=== PATIENT | male | born 1995 | race African-American/Black ===

== ENCOUNTER 2020-03-25 14:54 | Emergency (ER) | payer SELFPAY ==
[2020-03-25 14:58] VITALS: BP 148/93; PULSE 80; RESP 16; TEMP 36.7; O2SAT 100
[2020-03-25] MEDS: cefTRIAXone 250 MG VIAL IM (15:28)
[2020-03-25] MEDS: Azithromycin 250 MG TAB 1000 MG PO (15:28)
[2020-03-25 15:51] VITALS: BP 131/86; PULSE 60; TEMP 36.6; O2SAT 100
--- NOTE | 2020-03-27 08:35 | ED.GENADUL_ITS ---
Discharge Plan Disposition Patient Disposition: HOME Condition: Stable Discharge Details Chief Complaint: GenMedical Clinical Impression: Exposure to STD Primary Care Provider: Rodrigo Kelley ED Provider: Imelda Grove Home Meds and New Rx's Prescriptions: No Action No Known Home Meds RF: 0 Discharge Instructions Instructions: Chlamydia (ED) Additional Instructions: Test results will return in approximately 3 to 5 days. We will call for any abnormal results. Please feel free to call [phone] or follow-up with PCP for your test results. You received a dose of azithromycin as well as ceftriaxone due to your exposure to chlamydia. Please use condoms to protect yourself. Return for any worsening, concerns or alarming symptoms sooner if needed. Recheck with PCP for development of symptoms or any concerns if needed Discharge Data Discharge Date/Time-TO BE ENTERED AT DEPARTURE: 03/25/20 16:04 Medical Decision Making Is a very pleasant 25-year-old gentleman presenting after chlamydia exposure. Patient had unprotected intercourse with a partner a few days ago and was advised to day that she was positive for chlamydia. Patient reports he is asymptomatic. On physical exam patient has a benign exam with no obvious penile discharge. Patient does have a single isolated lymph node noted in the left inguinal. Patient has benign abdominal exam. After discussion with the patient will plan to provide dose of azithromycin as well as ceftriaxone IM. Patient agrees this plan of care. Patient did provide urine sample for GC and chlamydia testing. Patient has no other identifiable rash noted in the perineum. We did discuss HIV and hepatitis. Patient does not feel he needs testing at this time. Recommended follow-up with PCP for any development of symptoms or return to the emergency room for any concerns. Patient advised to abstain from intercourse until test results have returned for approximately the next 5 days. Patient reports understanding, agrees with plan of care. The patient was stable and requested discharge. Prior to discharge, my usual and customary return precautions were reviewed with the patient - this included follow-up instructions and reasons to return to the Emergency Department if conditions worsens, does not improve as expected, or other new concerns arise. HPI General Date/Time Provider Initiated Documentation: 03/25/20 15:00 . HPI Narrative: This is a 25-year-old gentleman presenting to the emergency room for concerns of STD exposure. Patient reports he had under protected intercourse with a partner last few days. Patient reports partner told him today that she was positive for chlamydia. Patient denies any penile discharge, no penile itching, urgency, frequency of urination. Patient denies any abdominal or back pain. No fevers, chills, nausea, vomiting. Denies testicular pain or swelling. Patient denies any rash. Patient concerned specifically with exposure but reports being asymptomatic. No history of STD in the past. Regarding Covid: Screens negative. No cough, difficulty breathing shortness of breath, wheezing. No headache. No ill feeling. No taste or smell change. Patient denies any other concerns or complaints at this time. Related Data Home Medications Medication Instructions Recorded Confirmed Unknown [No Known Home Meds] 03/25/20 03/25/20 Allergies Allergy/AdvReac Type Severity Reaction Status Date / Time acetaminophen [From Tylenol] AdvReac NO TYLENOL Unverified 03/25/20 15:02 DUE TO G6pD DEFICIENCY General Stated Complaint: GenMedical GILES: 4 Review of Systems All systems reviewed & are unremarkable except as noted in HPI and below PFSH Social History Smoking/Tobacco Use Status: Never Alcohol Intake: current Alcohol Intake frequency: a few times a month Drug use: Never Substance use type: does not use Do you feel safe at home: Yes Do you feel safe in your relationship?: Yes Exam Narrative Exam Narrative: CONST: Healthy appearing patient, in no acute distress. Well hydrated. Alert and oriented. HENMT: Head nomocephalic, normal to inspection. Atraumatic. Hearing grossly normal. EYES: General normal appearance. Alignment normal. Eyelids normal. Conjunctiva normal. NECK: Normal visual inspection. FROM. Trachea midline. No Midline tenderness. CHEST: Normal insepection of the chest. RESP: Normal respiratory effort. Speaking full sentences. No cough. No audible wheezing. No retractions. CARDIO: No JVD. Abdomen: Abdomen is soft, nontender. : Uncircumcised, no rash. No obvious penile discharge. No testicular pain, scrotal pain or epididymal tenderness noted on exam. No asymmetric swelling present. Isolated, singular lymphadenopathy present in the inguinal lymph node on the left. MUSCULOSKELETAL: Normal Gait. FROM of all extremities. SKIN: Normal. Dry. No rashes. NEURO: Alert and awake. Speech clear. PSYCH: Normal affect. Cooperative. Course Vital Signs Vital signs: Vital Signs Temperature 36.7 C 03/25/20 14:58 Pulse 80 03/25/20 14:58 Respiratory Rate 16 03/25/20 14:58 Blood Pressure 148/93 H 03/25/20 14:58 Pulse Oximetry 100 03/25/20 14:58 Temperature 36.6 C 03/25/20 15:51 Temperature Source Skin 03/25/20 15:51 Pulse 60 03/25/20 15:51 Respiratory Rate 16 03/25/20 14:58 Respiratory Effort Non-Labored 03/25/20 15:02 Blood Pressure 131/86 03/25/20 15:51 Blood Pressure Position Sitting 03/25/20 14:58 Pulse Oximetry 100 03/25/20 15:51 Oxygen Delivery Method Room Air 03/25/20 15:51 Oxygen Flow Rate 0 03/25/20 15:51 Pain Level 0 03/25/20 14:58
[2020-03-28 15:29] LABS: GC Result Negative (Negative)
[2020-03-28 16:48] LABS: Chlamydia Result Positive (Negative)
--- NOTE | 2020-03-28 16:50 | NUR.NOTE ---
Nursing Note: Access pt chart for discharge prescriptions. Myriam Burnham.
== END 2020-03-25 16:04 | disposition home or self-care (01) ==
PROVIDERS: Emergency Provider Physician Assistant; PCP Family Medicine
DX: Z11.8 Encounter for screening for other infectious and parasitic diseases (principal)
CPT/HCPCS: 87491; 87591; 96372; 99284; 99283; J0696

== ENCOUNTER 2022-10-30 11:24 | Outpatient (REF) | payer BC, SELFPAY ==
[2022-10-31 13:04] LABS: Chlamydia Result Negative (Negative); GC Result Negative (Negative)
== END 2022-10-30 11:25 | disposition home or self-care (01) ==
LOC: LBN 11:24
PROVIDERS: Visit Provider Physician Assistant
DX: Z11.3 Encounter for screening for infections with a predominantly sexual mode of transmission (principal)
CPT/HCPCS: 87491; 87591

== ENCOUNTER 2022-10-30 16:49 | Outpatient (CLI) | payer BC, SELFPAY ==
[2022-10-31 10:53] LABS: HIV-1/2 Ag & Ab Screen Negative (Negative)
[2022-10-31 11:06] LABS: Hepatitis A Antibody IgM Negative (Negative); Hepatitis B Core Antibody Negative (Negative); Hepatitis B surface Ag Negative (Negative); Hepatitis C Ab w Rflx HCV PCR Negative (Negative)
== END 2022-10-30 16:50 | disposition home or self-care (01) ==
LOC: LBO 16:50
PROVIDERS: Visit Provider Physician Assistant
DX: N50.89 Other specified disorders of the male genital organs (principal); Z11.59 Encounter for screening for other viral diseases; Z11.4 Encounter for screening for human immunodeficiency virus [HIV]
CPT/HCPCS: 36415; 86704; 86709; 86803; 87340; 87389

== ENCOUNTER 2022-12-10 14:03 | Outpatient (REF) | payer BC, SELFPAY ==
[2022-12-12 13:13] LABS: Chlamydia Result Negative (Negative); GC Result Negative (Negative)
[2022-12-12 13:27] LABS: HSV Type 1 Ab, IgG Negative (Negative); HSV Type 2 Ab, IgG Positive (Negative)
== END 2022-12-10 14:04 | disposition home or self-care (01) ==
LOC: LBN 14:03
PROVIDERS: Visit Provider Nurse Practitioner Family
DX: Z11.3 Encounter for screening for infections with a predominantly sexual mode of transmission (principal); Z20.2 Contact with and (suspected) exposure to infections with a predominantly sexual mode of transmission; Z11.59 Encounter for screening for other viral diseases
CPT/HCPCS: 87491; 87529; 87591; 86695; 86696

== ENCOUNTER 2022-12-24 12:54 | Outpatient (CLI) | payer BC, SELFPAY ==
[2022-12-26 10:34] LABS: HSV Type 1 Ab, IgG Negative (Negative); HSV Type 2 Ab, IgG Positive (Negative)
== END 2022-12-24 12:55 | disposition home or self-care (01) ==
LOC: LBO 12:57
PROVIDERS: Visit Provider Nurse Practitioner Family
DX: B00.89 Other herpesviral infection (principal)
CPT/HCPCS: 36415; 86695; 86696

== ENCOUNTER 2023-09-04 17:22 | Emergency (ER) | payer SELFPAY ==
[2023-09-04 17:26] VITALS: BP 153/93; PULSE 78; RESP 14; TEMP 36.9; O2SAT 100
--- NOTE | 2023-09-04 18:35 | W.ED.GENAD ---
Discharge Plan Disposition Patient Disposition: Home Discharge Details Clinical Impression: Rectal bleeding Primary Care Provider: None,None ED Provider: Solis Hargrove Home Meds and New Rx's Prescriptions: No Action No Known Home Meds Discharge Instructions Instructions: Rectal Bleeding (ED) Additional Instructions: Please watch for new or worsening symptoms and return immediately to the ER. You may want to take stool softeners over the next 48 hours to avoid straining with any bowel movements. I recommend that you contact our general surgery team to discuss your symptoms and potential colonoscopy if symptoms were to persist. Referrals: Serenity Benavides MD [ [facility] STAFF PHYSICIAN] - Discharge Data Discharge Date/Time-TO BE ENTERED AT DEPARTURE: 09/04/23 19:13 Medical Decision Making 28-year-old gentleman who denies any significant past medical history presents having noted bright red blood in the toilet water after having had a bowel movement roughly 2 hours ago. Denies any true constipation bowel movement was somewhat firm. He then noticed some bright red blood on the tissue paper after wiping. Denies any pain whatsoever. Denies history of any GI bleeding. Denies easy bleeding in general, bleeding from his gums, etc. Denies significant change in his diet. Denies abdominal pain. Clinically he appears well, nontoxic. He is hemodynamically stable. I am not able to appreciate any obvious external hemorrhoids. While I do not feel any obvious internal hemorrhoid, certainly cannot rule them out. Most likely diagnosis is that of a anal fissure which will self resolve. He is otherwise healthy, no indication to obtain routine laboratory values to assess H&H. Plan to have the patient monitor symptoms carefully. Discussed the importance of adequate hydration as well as [id number] stool softeners for the next few days to avoid straining with any of his bowel movements. I will provide a referral to our general surgical team so that if he has ongoing symptoms he can have reassessment and discuss potential colonoscopy if indicated. Standard discharge and return precautions were provided. Patient understands, is agreeable to this plan, and has no additional questions or concerns upon discharge. This documentation was generated using [employer] system, please disregard any oddities of phrase or misspellings. Medical Records Medical records reviewed: Yes I reviewed the patient's medical records. HPI General Mode of arrival: ambulatory. Date/Time Provider Initiated Documentation: 09/04/23 18:05. Limitations to Documentation: no limitations. Information obtained by: patient. History of Present Illness 28 year old M presents to the emergency department with the chief complaint of rectal bleed, described as mild, with intensity rated at 2. Quality is described as other (no pain), and is localized to the buttocks. Patient reports no radiation. Patient started experiencing this hour(s) (2) and it has been other (Only happened once). No relieving factors improve symptom(s), Other factors that worsen symptoms (Bowel movement) . Patient notes no other symptoms.. Patient did receive the following treatments prior to arrival, none Related Data Home Medications Medication Instructions Recorded Confirmed Unknown [No Known Home Meds] 03/25/20 09/04/23 Allergies Allergy/AdvReac Type Severity Reaction Status Date / Time acetaminophen [From Tylenol] AdvReac NO TYLENOL Unverified 09/04/23 17:48 DUE TO G6pD DEFICIENCY General Stated Complaint: GI Bleed GILES: 4 Review of Systems Constitutional Constitutional: Denies fatigue, Denies fever(s) and Denies weakness Cardiovascular Cardiovascular: Denies chest pain and Denies dyspnea Respiratory Respiratory: Denies dyspnea Gastrointestinal Gastrointestinal: Denies abdominal pain, Denies melena, Reports hematochezia, Denies change in bowel habits, Denies constipation, Denies diarrhea, Denies nausea and Denies vomiting Genitourinary Genitourinary: Denies hematuria Musculoskeletal Musculoskeletal: Denies back pain Integumentary/Breasts Skin/Breast: Denies rash Neurologic Neurologic: Denies weakness Endocrine Endocrine: Denies fatigue Hematologic/Lymphatic Hematologic/Lymphatic: Denies easy bleeding and Denies easy bruising PFSH All Active Problems Rectal bleeding (Acute) HSV-2 seropositive (Acute) Spermatocele (Acute) Medical History 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) Adopted (12/26/12) Social History Smoking/Tobacco Use Status: Current every day Tobacco Type: smokeless tobacco Smoking risk assessment performed?: Yes Alcohol Intake: current Alcohol Intake frequency: a few times a month Drug use: Never Substance use type: does not use Do you feel safe at home: Yes Do you feel safe in your relationship?: Yes Exam Const General: cooperative, healthy appearing, comfortable and no acute distress [facility] Head: normal to inspection Mouth: moist mucous membranes Eyes General: appearance normal, both eyes and all related structures Neck Neck: normal visual inspection, full ROM, no meningeal signs and supple Resp Effort & Inspection: normal respiratory effort and able to speak in complete sentences Auscultation: clear to auscultation bilaterally Cardio Rate: regular rate Rhythm: regular rhythm GI Inspection: normal to inspection Palpation: soft, not firm, no guarding and nontender Auscultation: normal bowel sounds Rectal Exam: visual inspection normal, normal sphincter tone, No abnormal stool, heme positive stool 1+; Negative for gross blood, No hemorrhoids, No tenderness and other (Brown stool noted) Other: Exam completed with female RN in room Back/Spine/Pelvis Back: No back tenderness Skin General skin exam: no rashes or lesions noted Neuro General: patient alert and patient awake Cognition: normal cognition Speech: speech normal Gait: normal gait Extrem General: normal to inspection Course Vital Signs Vital signs: Vital Signs Temperature 36.9 C 09/04/23 17:26 Pulse 78 09/04/23 17:26 Respiratory Rate 14 09/04/23 17:26 Blood Pressure 153/93 H 09/04/23 17:26 Pulse Oximetry 100 09/04/23 17:26 Temperature 36.9 C 09/04/23 17:26 Pulse 78 09/04/23 17:26 Respiratory Rate 14 09/04/23 17:26 Respiratory Effort Normal 09/04/23 17:44 Blood Pressure 153/93 H 09/04/23 17:26 Pulse Oximetry 100 09/04/23 17:26 Oxygen Delivery Method Room Air 09/04/23 17:26 Oxygen Flow Rate 0 09/04/23 17:26 Pain Level 0 09/04/23 17:26
== END 2023-09-04 19:13 | disposition home or self-care (01) ==
PROVIDERS: Emergency Provider Physician Assistant
DX: K62.5 Hemorrhage of anus and rectum
CPT/HCPCS: 99283